=== PATIENT | male | born 1955 | race Caucasian/White ===

== ENCOUNTER → 2018-01-10 | Outpatient (CLI) | payer OTHER ==
[~2018-01-10] MED LIST: IBUP-1050 PO
[2018-01-10 12:57] LABS: BASO % 0.5 %; BASO ABS # 0.02 K/uL (0-0.2); EOS % 2.4 %; HEMATOCRIT 44.9 % (42-52); HEMOGLOBIN 15.8 g/dL (14.0-18.0); IG# 0.01 K/uL (0.00-0.02); LYMPH % 28.1 %; LYMPH ABS # 1.17 K/uL (1.2-3.4); MEAN CELL VOLUME 90.5 fL (80-100); MEAN CORPUSCULAR HEMOGLOBIN 31.9 pg (25-34); MEAN CORPUSCULAR HGB CONC 35.2 g/dl (32-36); MEAN PLATELET VOLUME 10.4 fL (7.4-10.4); MONO % 10.3 %; MONO ABS # 0.43 K/uL (0.11-0.59); NEUT % 58.5 %; NEUT ABS # 2.44 K/uL (1.4-6.5); PLATELET COUNT 189 K/uL (130-400); RED CELL DISTRIBUTION WIDTH CV 13.6 % (11.5-14.5); RED CELL DISTRIBUTION WIDTH SD 44.9 fL (36.4-46.3); WHITE BLOOD COUNT 4.17 K/uL (4.8-10.8)
[2018-01-10 13:27] LABS: ALT/SGPT 26 U/L (12-78); AST/SGOT 19 U/L (15-37); BLOOD UREA NITROGEN 15 mg/dl (7-18); CALCIUM 8.8 mg/dl (8.5-10.1); CARBON DIOXIDE 29 mmol/L (21-32); CHOLESTEROL 215 mg/dl (0-200); CREATININE 0.81 mg/dl (0.60-1.40); GLUCOSE 89 mg/dl (70-99); POTASSIUM 3.7 mmol/L (3.5-5.1); SODIUM 139 mmol/L (136-145)
[2018-01-10 13:37] LABS: ALKALINE PHOSPHATASE 68 U/L (45-117); LDL CHOLESTEROL CALCULATED 143 mg/dl; TOTAL PROTEIN 7.5 gm/dl (6.4-8.2)
== END | disposition home or self-care (01) ==
LOC: C.LABPBG 07:39
PROVIDERS: ATTEND Nurse Practitioner
DX: R53.83 Other fatigue (principal); R39.198 Other difficulties with micturition; E78.00 Pure hypercholesterolemia, unspecified

== ENCOUNTER → 2018-01-16 | Outpatient (CLI) | payer OTHER ==
--- NOTE | 2018-01-16 16:14 | DIAGNOSTIC IMAGING REPORT ---
ABDOMEN FOR HERNIA HISTORY: 62 years-old Male INTERMITTENT PERIUMBILICAL ABD PAIN acute periumbilical abdominal pain COMPARISON: None available TECHNIQUE: Multiple real-time sonographic images of the periumbilical tissues were obtained assessing grayscale appearance FINDINGS: No hernia, tissue heterogeneity or other focal abnormality identified. Periumbilical tissues appear normal. IMPRESSION: No periumbilical hernia identified. The above report was generated using voice recognition software. It may contain grammatical, syntax or spelling errors. Electronically signed by: Benito Beatty M.D. 01/16/2018 4:13 PM Dictated Date/Time: 01/16/2018 4:12 PM
== END | disposition home or self-care (01) ==
LOC: C.ULTR 15:31
PROVIDERS: ATTEND Nurse Practitioner
DX: R10.33 Periumbilical pain (principal)